=== PATIENT | male | born 1960 | race Caucasian/White ===

== ENCOUNTER 2017-04-15 08:58 | Outpatient (CLI) | payer OTHER ==
[2017-04-15 09:20] LABS: BASOPHILS # (AUTO) 0.1 10^3/uL (0.0-0.1); EOSINOPHILS # (AUTO) 0.3 10^3/uL (0.0-0.7); EOSINOPHILS % (AUTO) 3.9 %; HCT - HEMATOCRIT 50.4 % (42.0-52.0); HGB - HEMOGLOBIN 17.3 g/dL (14.0-18.0); LYMPHOCYTES # (AUTO) 2.7 10^3/uL (1.5-3.5); LYMPHOCYTES % (AUTO) 36.8 %; MEAN CORPUSCULAR HEMOGLOBIN 31.9 pg (27.0-31.0); MEAN CORPUSCULAR HGB CONC 34.3 g/dL (32.0-36.0); MEAN PLATELET VOLUME 7.7 fL (7.4-11.4); MONOCYTES # (AUTO) 0.5 10^3/uL (0.0-1.0); MONOCYTES % (AUTO) 6.2 %; NEUTROPHILS # (AUTO) 3.8 10^3/uL (1.5-6.6); NEUTROPHILS % (AUTO) 52.1 %; NUCLEATED RED BLOOD CELLS AUTO 0.1 /100WBC; RED BLOOD COUNT 5.42 10^6/uL (4.70-6.10); RED CELL DISTRIBUTION WIDTH 12.8 % (12.0-15.0); UNCORRECTED WHITE BLOOD COUNT 7.4 x10^3/uL; WHITE BLOOD COUNT 7.4 x10^3/uL (4.8-10.8)
[2017-04-15 09:57] LABS: ALBUMIN/GLOBULIN RATIO 1.5 (1.0-2.2); BILIRUBIN,TOTAL 2.5 mg/dL (0.2-1.0); BUN - BLOOD UREA NITROGEN 18 mg/dL (6-20); CALCIUM 10.1 mg/dL (8.5-10.3); CARBON DIOXIDE - CO2 26 mmol/L (21-32); CHLORIDE 104 mmol/L (101-111); CHOL/HDL RATIO 4.8 (<5.0); CHOLESTEROL 188 mg/dL; CREATININE 1.2 mg/dL (0.6-1.2); GFR - MDRD 62 (>89); GLUCOSE 101 mg/dL (70-100); HDL CHOLESTEROL 39 mg/dL; LDL/HDL RATIO 2.9 (<3.6); SODIUM 139 mmol/L (135-145); TOTAL PROTEIN 8.2 g/dL (6.7-8.2); TRIGLYCERIDES 183 mg/dL; VLDL CHOLESTEROL 37 mg/dL
== END 2017-04-15 08:59 | disposition home or self-care (01) ==
LOC: LAB 08:58
PROVIDERS: ATTEND Physician Assistant Medical
DX: Z00.00 Encounter for general adult medical examination without abnormal findings (principal); Z79.899 Other long term (current) drug therapy
CPT/HCPCS: 36415; 80053; 80061; 82306; 82728; 84153; 85025

== ENCOUNTER 2017-09-07 17:46 | Emergency (ER) | payer OTHER ==
[2017-09-07 17:53] VITALS: BP 156/95
--- NOTE | 2017-09-07 18:01 | ED Physician Documentation ---
PD HPI OPHTHO - Stated complaint Stated Complaint: R EYE INJ - Chief complaint Chief Complaint: Heent - History obtained from History obtained from: Patient - History of Present Illness Timing - onset: How many hours ago (couple), Today Timing - duration: Hours (couple) Timing - details: Abrupt onset (working on apple tree and got poked in eye with branch. Continued pain/FB feeling in the right eye. No visual change.), Still present Location: Right Quality / character: Aching Associated symptoms: FB sensation. No: Photophobia, Decreased vision Contributing factors: Blunt trauma (poked in right eye by apple tree small branch.). No: Work related Similar symptoms before: Has not had sx before Recently seen: Not recently seen Review of Systems Eyes: reports: Photophobia, Irritation. denies: Loss of vision, Decreased vision, Discharge PD PAST MEDICAL HISTORY - Past Medical History Cardiovascular: Hypertension : None Psych: Anxiety - Past Surgical History Past Surgical History: No - Present Medications Home Medications: Ambulatory Orders Medication Instructions Recorded Confirmed Olmesartan Medoxomil [Benicar] 20 mg PO DAILY 08/02/13 03/30/14 Oxycodone HCl/Acetaminophen 1 - 2 each PO Q6HR PRN #20 tablet 03/30/14 [Percocet 5-325 mg Tablet] Tamsulosin [Flomax] 0.4 mg PO DAILY #5 capsule 03/30/14 - Allergies Allergies/Adverse Reactions: Allergies Allergy/AdvReac Type Severity Reaction Status Date / Time amlodipine Allergy Severe Respiratory Verified 09/07/17 17:54 azithromycin [From Zithromax] Allergy Severe Respiratory Verified 09/07/17 17:54 carvedilol AdvReac Dizziness Verified 09/07/17 17:54 docusate sodium * AdvReac Respiratory Verified 09/07/17 17:54 [From Colace] hazelnuts Allergy Intermediate Respiratory Uncoded 09/07/17 17:54 Hazelnuts Allergy Respiratory Uncoded 09/07/17 17:54 - Social History Does the pt smoke?: No Smoking Status: Never smoker Does the pt drink ETOH?: Yes Does the pt have substance abuse?: No - Immunizations Immunizations are current?: Yes - POLST Patient has POLST: No PD ED PE NORMAL - Vitals Vital signs reviewed: Yes - General General: Alert and oriented X 3, Well developed/nourished - HEENT HEENT: PERRL, EOMI, Pharynx benign - Neck Neck: Supple, no meningeal sign, No adenopathy PD ED PE EXPANDED - Eyes Eyes: Corneal abrasion, Fluorescein uptake, Anterior chambers clear, Normal fundi. No: Corneal FB Results - Vitals Vitals: Vital Signs - 24 hr 09/07/17 17:50 Temperature 36.8 C Heart Rate 67 Respiratory 18 Rate Blood Pressure 156/95 H O2 Saturation 98 Oxygen O2 Source Room air PD MEDICAL DECISION MAKING - ED course Complexity details: considered differential, d/w patient Departure - Departure Disposition: Home, Self Care Clinical Impression: Corneal abrasion, right Qualifiers: Encounter type: initial encounter Qualified Code(s): S05.01XA - Injury of conjunctiva and corneal abrasion without foreign body, right eye, initial encounter Condition: Stable Record reviewed to determine appropriate education?: Yes Instructions: ED Eye Injury Corneal Abrasion Follow-Up: Horacio Melissa MD [Primary Care Provider] - Comments: Tylenol or ibuprofen if needed for mild pains. He can use the proparacaine eyedrops as needed for the pain in the eye. However stay out of when Arnaud do not do any other activity where something could get in URI as you will lose your protective reflex with it. Do not use it beyond 12-24 hours as if you are still needing the drops at that point need to recheck. Recheck if signs of infection develop. If this heals up over the next 1-2 days that would be appropriate. Discharge Date/Time: 09/07/17 18:29
[2017-09-07] MEDS ORDERED: PROPARACAINE 0.5% OPHTH DROPS 15 ML ONE (18:04)
== END 2017-09-07 18:29 | disposition home or self-care (01) ==
LOC: ED 17:46
DX: S05.01XA Injury of conjunctiva and corneal abrasion without foreign body, right eye, initial encounter (principal); I10 Essential (primary) hypertension; W22.8XXA Striking against or struck by other objects, initial encounter; Y93.89 Activity, other specified
CPT/HCPCS: 99282; 99283; J3490

== ENCOUNTER 2017-11-08 10:34 | Outpatient (CLI) | payer OTHER ==
[2017-11-08 11:19] LABS: EOSINOPHILS # (AUTO) 0.2 10^3/uL (0.0-0.7); EOSINOPHILS % (AUTO) 2.7 %; HGB - HEMOGLOBIN 16.1 g/dL (14.0-18.0); LYMPHOCYTES % (AUTO) 31.6 %; MEAN CORPUSCULAR HEMOGLOBIN 31.9 pg (27.0-31.0); MEAN CORPUSCULAR HGB CONC 33.6 g/dL (32.0-36.0); MEAN PLATELET VOLUME 8.3 fL (7.4-11.4); MONOCYTES # (AUTO) 0.4 10^3/uL (0.0-1.0); MONOCYTES % (AUTO) 7.1 %; NEUTROPHILS # (AUTO) 3.6 10^3/uL (1.5-6.6); NEUTROPHILS % (AUTO) 58.6 %; PLT - PLATELET COUNT 205 10^3/uL (130-450); RED BLOOD COUNT 5.06 10^6/uL (4.70-6.10); WHITE BLOOD COUNT 6.2 x10^3/uL (4.8-10.8)
[2017-11-08 11:31] LABS: ALBUMIN 4.6 g/dL (3.2-5.5); ALBUMIN/GLOBULIN RATIO 1.5 (1.0-2.2); BILIRUBIN,TOTAL 1.2 mg/dL (0.2-1.0); CALCIUM 9.7 mg/dL (8.5-10.3); CREATININE 1.2 mg/dL (0.6-1.2); MAGNESIUM 2.2 mg/dL (1.7-2.8); TOTAL PROTEIN 7.7 g/dL (6.7-8.2)
[2017-11-08 11:49] LABS: THYROID STIMULATING HORMONE 1.54 uIU/mL (0.34-5.60)
[2017-11-08 11:54] LABS: FERRITIN 136.2 ng/mL (23.9-336.2)
[2017-11-08 13:57] LABS: BILIRUBIN,URINE NEGATIVE (NEGATIVE); GLUCOSE, URINE (UA) NEGATIVE (NEGATIVE); KETONES,URINE (UA) NEGATIVE (NEGATIVE); LEUKOCYTE ESTERASE, URINE NEGATIVE (NEGATIVE); NITRITE,URINE NEGATIVE (NEGATIVE); OCCULT BLOOD,URINE NEGATIVE (NEGATIVE); PH,URINE 5.5 PH (5.0-7.5); PROTEIN,URINE NEGATIVE (NEGATIVE); UROBILINOGEN,URINE 0.2 (NORMAL) E.U./dL (NORMAL)
[2017-11-08 14:00] LABS: CLARITY,URINE CLEAR (CLEAR)
== END 2017-11-08 10:35 | disposition home or self-care (01) ==
LOC: LAB 10:34
PROVIDERS: ATTEND Physician Assistant Medical
DX: R82.90 Unspecified abnormal findings in urine (principal); Z79.899 Other long term (current) drug therapy; I47.1 Supraventricular tachycardia; I10 Essential (primary) hypertension; E83.119 Hemochromatosis, unspecified
CPT/HCPCS: 36415; 80053; 81001; 81003; 82043; 82728; 83735; 84443; 85025; 87086

== ENCOUNTER 2018-05-07 16:52 | Outpatient (CLI) | payer OTHER ==
[2018-05-07 17:16] LABS: ALBUMIN 4.3 g/dL (3.2-5.5); ALBUMIN/GLOBULIN RATIO 1.1 (1.0-2.2); BILIRUBIN,TOTAL 1.4 mg/dL (0.2-1.0); CALCIUM 9.5 mg/dL (8.5-10.3); CREATININE 1.2 mg/dL (0.6-1.2); TOTAL PROTEIN 8.1 g/dL (6.7-8.2)
[2018-05-07 18:07] LABS: BILIRUBIN,URINE NEGATIVE (NEGATIVE); GLUCOSE, URINE (UA) NEGATIVE (NEGATIVE); KETONES,URINE (UA) NEGATIVE (NEGATIVE); LEUKOCYTE ESTERASE, URINE NEGATIVE (NEGATIVE); NITRITE,URINE NEGATIVE (NEGATIVE); OCCULT BLOOD,URINE NEGATIVE (NEGATIVE); PROTEIN,URINE NEGATIVE (NEGATIVE); UROBILINOGEN,URINE 0.2 (NORMAL) E.U./dL (NORMAL)
[2018-05-07 18:08] LABS: CLARITY,URINE CLEAR (CLEAR)
== END 2018-05-07 16:53 | disposition home or self-care (01) ==
LOC: LAB 16:52
PROVIDERS: ATTEND Physician Assistant Medical
DX: R60.0 Localized edema (principal); R82.90 Unspecified abnormal findings in urine; I49.3 Ventricular premature depolarization
CPT/HCPCS: 36415; 80053; 81001; 81003; 83880; 87086

== ENCOUNTER 2018-05-24 09:33 | Outpatient (CLI) | payer OTHER ==
--- NOTE | 2018-05-24 11:03 | Ultrasound Report ---
Procedure Date: 05/24/2018 Accession Number: [id number] / [id number] Procedure: US - Retroperitoneal CPT Code: FULL RESULT: EXAM: Retroperitoneal DATE: 05/24/2018 10:15 AM CLINICAL HISTORY: ELEVATED LFT'S,EDEMA,ANKLES,URINE ORDER,HEMOCHROMA COMPARISON: None. TECHNIQUE: Real-time scanning was performed with static images obtained. FINDINGS: Right Kidney: 11 cm. Parenchymal flow is preserved by color Doppler. Normal echotexture with no stones, contour-deforming masses, or hydronephrosis. Left Kidney: 11 cm. Parenchymal flow is preserved by color Doppler. Normal echotexture with no stones, contour-deforming masses, or hydronephrosis.] Bladder: Bilateral jets seen. The prevoid bladder volume was 410 cc. The postvoid bladder volume was 18 cc. IMPRESSION: Normal study. RADIA
--- NOTE | 2018-05-24 11:18 | Ultrasound Report ---
Procedure Date: 05/24/2018 Accession Number: [id number] / [id number] Procedure: US - Abdomen Limited CPT Code: FULL RESULT: EXAM: Abdomen Limited DATE: 05/24/2018 10:49 AM CLINICAL HISTORY: ELEVATED LFT'S,EDEMA,ANKLES,URINE ORDER,HEMOCHROMA COMPARISON: None. TECHNIQUE: Real-time scanning was performed with static images obtained. FINDINGS: Liver: The liver is echogenic with a coarsened heterogeneous echotexture and measures at least 15 cm. Main portal vein flow: Hepatopetal. Focal fatty sparing is seen in the gallbladder fossa region. A separate hypoechoic lesion measuring 2.0 x 1.4 x 2.0 cm without differential blood flow on color Doppler when compared to the surrounding parenchyma is indeterminate and was not visualized on the noncontrast CT abdomen pelvis 03/30/2014. Gallbladder: Normal. No stones, wall thickening, or sonographic Shafer's sign. Biliary System: Common bile duct measures 3 mm. No intrahepatic or extrahepatic ductal dilatation. Pancreas: Visualized portion is unremarkable. Kidneys: Right: 11 cm longitudinally. Normal. No contour-deforming mass, stones, or hydronephrosis. The IVC is patent by color Doppler. IMPRESSION: Fatty liver with focal fatty sparing. No sonographic evidence of cirrhosis as yet. There is an indeterminate hypoechoic liver dome lesion. The appearance is somewhat suggestive of focal fatty sparing but the location is unusual. Complete characterization by multiphase MRI liver mass protocol is recommended. RADIA
== END 2018-05-24 09:34 | disposition home or self-care (01) ==
LOC: DI 09:33
PROVIDERS: ATTEND Physician Assistant Medical
DX: K76.0 Fatty (change of) liver, not elsewhere classified (principal); R74.8 Abnormal levels of other serum enzymes; R60.0 Localized edema; E83.119 Hemochromatosis, unspecified; R82.90 Unspecified abnormal findings in urine
CPT/HCPCS: 76705; 76770

== ENCOUNTER 2018-06-04 08:52 | Outpatient (CLI) | payer OTHER ==
[2018-06-04] MEDS ORDERED: GADOBUTROL 10 MMOL/10 ML VIAL ONE (09:14)
[2018-06-04] MEDS ORDERED: GADOBUTROL 10 MMOL/10 ML VIAL IVP ONE (10:16)
--- NOTE | 2018-06-04 12:28 | MRI Report ---
Procedure Date: 06/04/2018 Accession Number: [id number] / [id number] Procedure: MRI - Abdomen W/WO CPT Code: FULL RESULT: EXAM: MR ABDOMEN WITH AND WITHOUT CONTRAST (MR PANCREAS AND MRCP) EXAM DATE: 06/04/2018 10:26 AM. CLINICAL HISTORY: Elevated LFTS, abnormal ultrasound - liver mass. COMPARISON: None. TECHNIQUE: An MRI of the abdomen examination with and without contrast was planned. Only cabin crew localizer images were obtained. The patient did not receive intravenous gadolinium contrast. The examination was aborted at the request of the patient due to inability to tolerate the procedure due to sleep apnea. FINDINGS: No gross abnormalities identified on 11 survey images that were obtained. IMPRESSION: Aborted examination. RADIA
== END 2018-06-04 08:53 | disposition home or self-care (01) ==
LOC: DI 08:52
PROVIDERS: ATTEND Physician Assistant Medical
DX: R74.8 Abnormal levels of other serum enzymes (principal); R93.5 Abnormal findings on diagnostic imaging of other abdominal regions, including retroperitoneum
CPT/HCPCS: 74183; A9585

== ENCOUNTER 2018-08-10 11:47 | Outpatient (CLI) | payer OTHER ==
[2018-08-10 12:07] LABS: BASOPHILS % (AUTO) 0.5 %; EOSINOPHILS # (AUTO) 0.2 10^3/uL (0.0-0.7); EOSINOPHILS % (AUTO) 3.3 %; LYMPHOCYTES # (AUTO) 2.1 10^3/uL (1.5-3.5); LYMPHOCYTES % (AUTO) 27.5 %; MEAN CORPUSCULAR HEMOGLOBIN 33.3 pg (27.0-31.0); MEAN CORPUSCULAR HGB CONC 35.7 g/dL (32.0-36.0); MEAN CORPUSCULAR VOLUME 93.3 fL (80.0-94.0); MEAN PLATELET VOLUME 7.6 fL (7.4-11.4); MONOCYTES # (AUTO) 0.6 10^3/uL (0.0-1.0); MONOCYTES % (AUTO) 7.8 %; NEUTROPHILS # (AUTO) 4.7 10^3/uL (1.5-6.6); NEUTROPHILS % (AUTO) 60.9 %; PLT - PLATELET COUNT 255 10^3/uL (130-450); RED BLOOD COUNT 4.82 10^6/uL (4.70-6.10); RED CELL DISTRIBUTION WIDTH 12.7 % (12.0-15.0); WHITE BLOOD COUNT 7.7 x10^3/uL (4.8-10.8)
== END 2018-08-10 11:48 | disposition home or self-care (01) ==
LOC: LAB 11:47
PROVIDERS: ATTEND Physician Assistant Medical
DX: E83.119 Hemochromatosis, unspecified (principal)
CPT/HCPCS: 36415; 82728; 85025

== ENCOUNTER 2019-08-07 14:19 | Outpatient (CLI) | payer OTHER ==
--- NOTE | 2019-08-07 14:49 | XRAY Report ---
Reason: REACTIVE AIRWAY DISEASE Procedure Date: 08/07/2019 Accession Number: [id number] / [id number] Procedure: XR - Chest 2 View X-Ray CPT Code: 08490 FULL RESULT: EXAM: CHEST RADIOGRAPHY EXAM DATE: 08/07/2019 02:36 PM. CLINICAL HISTORY: Reactive airway disease. COMPARISON: CHEST 2 VIEW PA/LAT 12/14/2015 11:07 AM. TECHNIQUE: 2 views. FINDINGS: Lungs/Pleura: No focal opacities evident. No pleural effusion. No pneumothorax. Normal volumes. Mediastinum: Heart and mediastinal contours are unremarkable. Other: None. IMPRESSION: Normal 2-view chest radiography. RADIA
== END 2019-08-07 14:20 | disposition home or self-care (01) ==
LOC: DI 14:19
PROVIDERS: ATTEND Family Medicine
DX: J45.909 Unspecified asthma, uncomplicated (principal)
CPT/HCPCS: 71046

== ENCOUNTER 2020-03-20 08:26 | Outpatient (CLI) | payer OTHER ==
[2020-03-20 08:41] LABS: BASOPHILS # (AUTO) 0.1 10^3/uL (0.0-0.1); BASOPHILS % (AUTO) 0.9 %; EOSINOPHILS # (AUTO) 0.3 10^3/uL (0.0-0.7); EOSINOPHILS % (AUTO) 4.8 %; HGB - HEMOGLOBIN 15.4 g/dL (14.0-18.0); LYMPHOCYTES # (AUTO) 2.4 10^3/uL (1.5-3.5); LYMPHOCYTES % (AUTO) 34.6 %; MEAN CORPUSCULAR HEMOGLOBIN 33.2 pg (27.0-31.0); MEAN CORPUSCULAR HGB CONC 34.2 g/dL (32.0-36.0); MEAN PLATELET VOLUME 9.3 fL (7.4-11.4); MONOCYTES # (AUTO) 0.5 10^3/uL (0.0-1.0); MONOCYTES % (AUTO) 7.2 %; NEUTROPHILS # (AUTO) 3.6 10^3/uL (1.5-6.6); NEUTROPHILS % (AUTO) 52.2 %; PLT - PLATELET COUNT 201 10^3/uL (130-450); RED BLOOD COUNT 4.64 10^6/uL (4.70-6.10); RED CELL DISTRIBUTION WIDTH 12.3 % (12.0-15.0); WHITE BLOOD COUNT 6.9 x10^3/uL (4.8-10.8)
[2020-03-20 08:59] LABS: ALBUMIN 4.2 g/dL (3.2-5.5); ALBUMIN/GLOBULIN RATIO 1.2 (1.0-2.2); ALKALINE PHOSPHATASE 63 IU/L (42-121); ALT ALANINE AMINOTRANSFERASE 89 IU/L (10-60); AST ASPARTATE AMINOTRANSFERASE 79 IU/L (10-42); BILIRUBIN,TOTAL 1.4 mg/dL (0.2-1.0); BUN - BLOOD UREA NITROGEN 15 mg/dL (6-20); CALCIUM 9.6 mg/dL (8.5-10.3); CARBON DIOXIDE - CO2 28 mmol/L (21-32); CHLORIDE 104 mmol/L (101-111); CHOL/HDL RATIO 5.9 (<5.0); CHOLESTEROL 201 mg/dL; CREATININE 1.2 mg/dL (0.6-1.2); GLUCOSE 114 mg/dL (70-100); HDL CHOLESTEROL 34 mg/dL; LDL CHOLESTEROL,CALCULATED 118 mg/dL; LDL/HDL RATIO 3.5 (<3.6); SODIUM 138 mmol/L (135-145); TOTAL PROTEIN 7.7 g/dL (6.7-8.2); VLDL CHOLESTEROL 49 mg/dL
[2020-03-20 09:14] LABS: FERRITIN 133.8 ng/mL (23.9-336.2)
== END 2020-03-20 08:27 | disposition home or self-care (01) ==
LOC: LAB 08:26
PROVIDERS: ATTEND Family Medicine
DX: Z79.899 Other long term (current) drug therapy (principal); Z13.220 Encounter for screening for lipoid disorders; Z12.5 Encounter for screening for malignant neoplasm of prostate; Z13.29 Encounter for screening for other suspected endocrine disorder
CPT/HCPCS: 36415; 80053; 80061; 82728; 83721; 84153; 84443; 85025

== ENCOUNTER 2021-01-20 10:14 | Outpatient (CLI) | payer OTHER ==
[2021-01-20 10:28] LABS: BASOPHILS % (AUTO) 0.4 %; EOSINOPHILS # (AUTO) 0.2 10^3/uL (0.0-0.7); EOSINOPHILS % (AUTO) 2.4 %; HCT - HEMATOCRIT 47.9 % (42.0-52.0); HGB - HEMOGLOBIN 16.3 g/dL (14.0-18.0); LYMPHOCYTES # (AUTO) 1.9 10^3/uL (1.5-3.5); LYMPHOCYTES % (AUTO) 26.2 %; MEAN CORPUSCULAR HEMOGLOBIN 32.5 pg (27.0-31.0); MEAN CORPUSCULAR VOLUME 95.4 fL (80.0-94.0); MEAN PLATELET VOLUME 9.5 fL (7.4-11.4); MONOCYTES # (AUTO) 0.5 10^3/uL (0.0-1.0); MONOCYTES % (AUTO) 7.1 %; NEUTROPHILS # (AUTO) 4.6 10^3/uL (1.5-6.6); NEUTROPHILS % (AUTO) 63.8 %; PLT - PLATELET COUNT 199 10^3/uL (130-450); RED BLOOD COUNT 5.02 10^6/uL (4.70-6.10); RED CELL DISTRIBUTION WIDTH 11.9 % (12.0-15.0); WHITE BLOOD COUNT 7.1 x10^3/uL (4.8-10.8)
[2021-01-20 10:43] LABS: ALBUMIN 4.6 g/dL (3.2-5.5); ALBUMIN/GLOBULIN RATIO 1.4 (1.0-2.2); BILIRUBIN,TOTAL 1.3 mg/dL (0.2-1.0); CALCIUM 10.3 mg/dL (8.5-10.3); CREATININE 1.2 mg/dL (0.6-1.2)
[2021-01-20 10:59] LABS: THYROID STIMULATING HORMONE 1.95 uIU/mL (0.34-5.60)
--- NOTE | 2021-01-20 11:13 | XRAY Report ---
PROCEDURE: Chest 2 View X-Ray INDICATIONS: Exertion and dyspnea; history of atrial fibrillation TECHNIQUE: 2 view(s) of the chest. COMPARISON: 08/07/2019 FINDINGS: Surgical changes and devices: None. Lungs and pleura: No pleural effusions or pneumothorax. Lungs are clear. Mediastinum: Mediastinal contours are normal. Heart size is normal. Bones and chest wall: No suspicious bony abnormalities. Soft tissues appear unremarkable. IMPRESSION: No acute cardiopulmonary process demonstrated radiographically. Reviewed by: Carrington Wolf MD on 01/20/2021 11:12 AM PDT Approved by: Carrington Wolf MD on 01/20/2021 11:12 AM PDT Station ID: [id number]
== END 2021-01-20 10:15 | disposition home or self-care (01) ==
LOC: LAB 10:14 → DI 10:15
PROVIDERS: ATTEND Family Medicine
DX: R06.09 Other forms of dyspnea (principal); J45.909 Unspecified asthma, uncomplicated; Z86.79 Personal history of other diseases of the circulatory system
CPT/HCPCS: 36415; 80053; 84443; 85025